=== PATIENT | female | born 1955 | race Caucasian/White ===

== ENCOUNTER 2019-02-15 15:22 | Emergency (ER) | payer MEDICAID ==
[~2019-02-15] VITALS: Ht 170.2 cm; Wt 89.0 kg
[2019-02-15 15:33] VITALS: BP 156/87
--- NOTE | 2019-02-15 15:42 | NUR ---
WAIT IN LOBBY.
--- NOTE | 2019-02-15 16:05 | NUR ---
PT TO ER BED 2
--- NOTE | 2019-02-15 16:16 | NUR ---
63 Y FEMALE BIB C/O FB IN LEFT EYE & PAIN X TODAY. C/O NON-PRODUCTIVE COUGH X 3 DAYS. PAIN 9/10 ACHING. -REDNESS, -SWELLING, NO FB FOUND. VSS AT THIS TIME. AA0X4. BED IS DOWN, LOCKED, BED RAIL X 1, ERMD NOTIFIED. MED HX: DENIES
[2019-02-15] MEDS ORDERED: FLUORESCEIN OPTH STRIP 0.6 MG OP ONE (17:00)
[2019-02-15] MEDS ORDERED: TETRACAINE HCL/PF 0.5% OPTH 4 ML BTL OP ONE (17:00)
[2019-02-15] MEDS ORDERED: TETRACAINE HCL/PF 0.5% OPTH 4 ML BTL ONE (17:17)
[2019-02-15 18:20] VITALS: BP 152/84
--- NOTE | 2019-02-15 18:20 | NUR ---
Patient discharged with v/s stable. Written and verbal after care instructions given and explained. Patient alert, oriented and verbalized understanding of instructions. Ambulatory with steady gait. All questions addressed prior to discharge. ID band removed. Patient advised to follow up with PMD. Rx of IBUPROFEN, NORCO given. Patient educated on indication of medication including possible reaction and side effects. Opportunity to ask questions provided and answered.
== END 2019-02-15 18:20 | disposition home or self-care (01) ==
LOC: MED 15:22
DX: S05.02XA Injury of conjunctiva and corneal abrasion without foreign body, left eye, initial encounter (principal); W22.8XXA Striking against or struck by other objects, initial encounter; Y93.89 Activity, other specified; Y92.89 Other specified places as the place of occurrence of the external cause; Y99.8 Other external cause status
CPT/HCPCS: 99283

== ENCOUNTER 2019-06-16 15:27 | Emergency (ER) | payer MEDICAID ==
[~2019-06-16] VITALS: Ht 147.3 cm; Wt 88.1 kg
[2019-06-16 15:37] VITALS: BP 121/67
[2019-06-16] MEDS ORDERED: ACETAMINOPHEN EXTRA STRENGTH 500 MG TAB PO ONE (15:45)
[2019-06-16] MEDS ORDERED: IBUPROFEN 600 MG TAB PO ONE (15:45)
--- NOTE | 2019-06-16 16:11 | NUR ---
PT C/O UPPER ABDOMINAL PAIN, FEVER, N/V/D, WEAKNESS, DIZZINESS, AND BODY ACHES X3 DAYS. PATIENT STATES PAIN OF 10/10 AT THIS TIME; VSS, BUT TACHYCARDIA NOTICED ON MONITOR; PATIENT POSITIONED FOR COMFORT; HOB ELEVATED; BEDRAILS UP X1; BED DOWN. ER MD MADE AWARE OF PT STATUS.
[2019-06-16] MEDS ORDERED: NACL 0.9% 1,000 ML IV ONE (17:40)
[2019-06-16] MEDS ORDERED: metroNIDAZOLE 500 MG/NS PREMIX 100 ML IV ONE (17:40)
[2019-06-16] MEDS ORDERED: LEVOFLOXACIN 500 MG/D5W PREMIX 100 ML IV ONE (17:40)
--- NOTE | 2019-06-16 17:52 | NUR ---
LAB AT BEDSIDE
[2019-06-16 18:10] LABS: BASOPHILS % (AUTO) 0.4 % (0.0-2.0); HEMATOCRIT 42.5 % (36-48); HEMOGLOBIN 14.6 g/dL (12.0-16.0); LYMPHOCYTES # (AUTO) 1.3 K/uL (2.5-16.5); LYMPHOCYTES % (AUTO) 11.9 % (20.5-51.1); MEAN CORPUSCULAR HEMOGLOBIN 31 pg (27-31); MEAN CORPUSCULAR HGB CONC 34 g/dL (33-37); MEAN CORPUSCULAR VOLUME 90.8 fL (80-94); MONOCYTES # (AUTO) 0.3 K/uL (0.8-1.0); NEUTROPHILS # (AUTO) 9.1 K/uL (1.8-7.7); NEUTROPHILS % (AUTO) 84.7 % (42.2-75.2); PLATELET COUNT (AUTO) 233 K/uL (140-450); RED BLOOD CELL COUNT(AUTO) 4.68 MIL/uL (4.20-5.40); RED CELL DISTRIBUTION WIDTH 13.6 % (11.6-13.7); WHITE BLOOD COUNT (AUTO) 10.7 K/uL (4.8-10.8)
[2019-06-16 18:25] LABS: ALBUMIN 3.5 g/dL (3.4-5.0); ANION GAP 15.5 (8-16); CARBON DIOXIDE 24.9 mmol/L (21-32); CREATININE 1.2 mg/dL (0.6-1.3); POTASSIUM 3.4 mmol/L (3.5-5.1); TOTAL BILIRUBIN 0.4 mg/dL (0.0-1.0)
--- NOTE | 2019-06-16 18:34 | NUR ---
PT IS RESTING IN BED. VSS. FEVER HAS BEEN REDUCED.
--- NOTE | 2019-06-16 19:39 | NUR ---
PT IS RESTING IN BED WITH EYES OPENED. VSS. T IS 98.8F AT THIS TIME.
[2019-06-16 19:59] LABS: APPEARANCE,URINE CLOUDY (CLEAR); BILIRUBIN,URINE NEGATIVE (NEGATIVE); BLOOD, URINE 1+ (NEGATIVE); COLOR,URINE YELLOW (YELLOW); LEUKOCYTE ESTERASE ,URINE 2+ (NEGATIVE); NITRITE, URINE NEGATIVE (NEGATIVE); UGLUCOSE NEGATIVE (NEGATIVE)
--- NOTE | 2019-06-16 20:06 | NUR ---
AMBULATED TO THE RESTROOM
[2019-06-16 20:40] VITALS: BP 113/58
--- NOTE | 2019-06-16 20:40 | NUR ---
Patient discharged with v/s stable. Written and verbal after care instructions given and explained. Patient alert, oriented and verbalized understanding of instructions. Ambulatory with steady gait. All questions addressed prior to discharge. ID band removed. Patient advised to follow up with PMD. Rx of Ciprofloxacin and Zofran given. Patient educated on indication of medication including possible reaction and side effects. Opportunity to ask questions provided and answered.
[2019-06-16 21:19] LABS: RBC,URINE 0-5 /HPF (0-5); URINE AMORPHOUS URATE 3+ /HPF (None Seen)
== END 2019-06-16 20:40 | disposition home or self-care (01) ==
LOC: MED 15:27
DX: A09 Infectious gastroenteritis and colitis, unspecified (principal); K76.0 Fatty (change of) liver, not elsewhere classified; F17.200 Nicotine dependence, unspecified, uncomplicated
CPT/HCPCS: 36415; 80053; 81001; 85025; 87040; 87086; 96365; 96367; 99283; J1956; J3490; J7030

== ENCOUNTER 2019-09-13 07:17 | Emergency (ER) | payer MEDICAID ==
[~2019-09-13] VITALS: Ht 152.4 cm; Wt 86.2 kg
--- NOTE | 2019-09-13 07:23 | NUR ---
PATIENT AMBULATED TO BED 6.
[2019-09-13 07:25] VITALS: BP 149/60
--- NOTE | 2019-09-13 07:25 | NUR ---
64 F PRESENTS TO THE ER C/O RIGHT ARM PAIN. PER PT SHE FELL 3 TO 4 MONTHS AGO ON RIGHT ARM. RIGHT ARM STILL HURTS AND PT UNABLE TO LIFT WITH RIGHT ARM. PAIN LEVEL 10/10. ALLERGIES: NKA MED HX: NONE
--- NOTE | 2019-09-13 07:36 | NUR ---
DR. RAZO EVALUATING PT AT BEDSIDE
[2019-09-13] MEDS ORDERED: KETOROLAC 30 MG/ML VIAL IM ONE (07:40)
--- NOTE | 2019-09-13 07:58 | NUR ---
XRAY AT BEDSIDE
[2019-09-13 08:27] VITALS: BP 149/60
--- NOTE | 2019-09-13 08:27 | NUR ---
Patient discharged with v/s stable. Written and verbal after care instructions given and explained. Pt has sling in place to immobilize right shoulder. Pt instructed to rest extremity and apply ice 15-20 min q 3-4 hours. Patient alert, oriented and verbalized understanding of instructions. Ambulatory with steady gait. All questions addressed prior to discharge. ID band removed. Patient advised to follow up with PMD. Rx of ENTERIC COATED NAPROXEN 375MG was given. Patient educated on indication of medication including possible reaction and side effects. Opportunity to ask questions provided and answered.
== END 2019-09-13 08:27 | disposition home or self-care (01) ==
LOC: MED 07:17
DX: S43.401A Unspecified sprain of right shoulder joint, initial encounter (principal); W19.XXXA Unspecified fall, initial encounter; Y93.89 Activity, other specified; Y92.89 Other specified places as the place of occurrence of the external cause; Y99.8 Other external cause status
CPT/HCPCS: 73030; 96372; 99283; J1885; Q0092

== ENCOUNTER 2019-12-16 23:42 | Emergency (ER) | payer MEDICAID ==
[~2019-12-16] VITALS: Ht 152.4 cm; Wt 86.2 kg
[2019-12-16 23:43] VITALS: BP 119/62
--- NOTE | 2019-12-16 23:50 | NUR ---
PT TAKEN TO BED 4
[2019-12-16] MEDS: IBUPROFEN 600 MG TAB PO ONE (23:51)
--- NOTE | 2019-12-16 23:55 | NUR ---
PT 64 Y/O FEMALE BIB SELF FOR C/O 08/16 GENRALZED BODY ACHES, COUGH, PAULSON, AND FEVER X 3 DAYS. PT AAO X 4, PAKISTANI SPEAKING. PT FEBRILE TEMP: 100.9. SKIN IS WARM AND DRY TO TOUCH. COOLING MEASURES IN PLACE. PT NOTED WITH NON-PRODUCTIVE COUGH. PT RESPIRATIONS ARE EVEN AND UNLABORED. LUNG SOUNDS CLEAR A/P BILAT. PT O2SAT @ 94% ON RA. PT ADMITS TO NAUSEA BUT DENIES V/D. ABD IS SOFT, ROUND, AND NON-TENDER. BS X4. PT DENIES TAKING ANY MEDICATION AT HOME. FAMILY MEMBER AT BEDSIDE. BED LOCKED AND IN LOWEST POSITION. MED HX: NONE ALLERGIES: NKA
--- NOTE | 2019-12-16 23:56 | NUR ---
X-Ray at bedside.
--- NOTE | 2019-12-17 00:19 | NUR ---
LAB CALLED AND REPORTED PT IS POSITIVE FLU A. MADE AWARE. NO NEW ORDERS AT THIS TIME.
--- NOTE | 2019-12-17 01:13 | NUR ---
Paco krause in [facility] - 12/17/19 [place] [address] Smith examining patient.
--- NOTE | 2019-12-17 01:19 | NUR ---
Dr. Smith examining patient.
[2019-12-17] MEDS: KETOROLAC 60 MG/2 ML VIAL IM ONE (01:38)
--- NOTE | 2019-12-17 01:45 | NUR ---
Patient discharged with v/s stable. Written and verbal after care instructions given and explained. Patient alert, oriented and verbalized understanding of instructions. Ambulatory with steady gait. All questions addressed prior to discharge. ID band removed. Patient advised to follow up with PMD. Rx of MOTRIN, PREDNISONE given. Patient educated on indication of medication including possible reaction and side effects. Opportunity to ask questions provided and answered.
[2019-12-17 01:47] VITALS: BP 107/64
== END 2019-12-17 01:45 | disposition home or self-care (01) ==
LOC: MED 23:42
DX: J11.1 Influenza due to unidentified influenza virus with other respiratory manifestations (principal)
CPT/HCPCS: 71045; 81002; 87804; 96372; 99284; J1885; Q0092

== ENCOUNTER 2019-12-19 15:12 | Emergency (ER) | payer MEDICAID ==
[~2019-12-19] VITALS: Ht 152.4 cm; Wt 86.2 kg
--- NOTE | 2019-12-19 15:26 | NUR ---
PT AMBULATED TO BED 03.
[2019-12-19 15:27] VITALS: BP 160/103
--- NOTE | 2019-12-19 15:30 | NUR ---
64/F BIB FAMILY C/O R ARM & R SHOULDER PAIN . 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 PATIENT STATES PAIN OF 9/10 AT THIS TIME. PATIENT POSITIONED FOR COMFORT; HOB ELEVATED; BEDRAILS UP X1; BED DOWN. ER MD MADE AWARE OF PT STATUS.
[2019-12-19] MEDS: KETOROLAC 60 MG/2 ML VIAL IM ONE (16:13)
--- NOTE | 2019-12-19 16:27 | NUR ---
PLACED SLING ON RIGHT ARM OF PT
--- NOTE | 2019-12-19 16:50 | NUR ---
Patient discharged with v/s stable. Written and verbal after care instructions given and explained. Patient alert, oriented and verbalized understanding of instructions. Ambulatory with steady gait. All questions addressed prior to discharge. ID band removed. Patient advised to follow up with PMD. Rx of FLEXARIL& IBUPROFEN given. Patient educated on indication of medication including possible reaction and side effects. Opportunity to ask questions provided and answered.
[2019-12-19 16:51] VITALS: BP 142/73
== END 2019-12-19 16:50 | disposition home or self-care (01) ==
LOC: MED 15:12
DX: S46.911A Strain of unspecified muscle, fascia and tendon at shoulder and upper arm level, right arm, initial encounter (principal); X58.XXXA Exposure to other specified factors, initial encounter; Y93.89 Activity, other specified; Y92.89 Other specified places as the place of occurrence of the external cause; Y99.8 Other external cause status
CPT/HCPCS: 73030; 96372; 99283; J1885

== ENCOUNTER 2020-06-24 20:03 | Emergency (ER) | payer MEDICAID ==
[~2020-06-24] VITALS: Ht 157.5 cm; Wt 90.7 kg
--- NOTE | 2020-06-24 20:07 | NUR ---
PT [facility] BLS. TAKEN TO BED 7
--- NOTE | 2020-06-24 20:13 | NUR ---
PT AMBULATED TO RESTROOM TO GIVE URINE SAMPLE
[2020-06-24] MEDS ORDERED: ALUMINUM HYD/MAG/SIMETHICONE 30 ML UDC PO ONE (20:15)
[2020-06-24] MEDS ORDERED: IBUPROFEN 400 MG TAB PO ONE (20:15)
[2020-06-24 20:23] VITALS: BP 163/77
--- NOTE | 2020-06-24 20:23 | NUR ---
PT BIBA C/O RUQ ABD PAIN RADIATING TO ENTIRE ABD AT 9/10 X1 WEEK, PAIN INCREASES AFTER EATING. PT AAOX4, COOPERATIVE, SPEECH CLEAR, SPEAKING IN FULL COMPLETE SENTENCES, AMBULATORY WITH STEADY GAIT. PMH:DENIES RX:DENIES
--- NOTE | 2020-06-24 20:40 | NUR ---
LAB AT BEDSIDE
--- NOTE | 2020-06-24 20:43 | NUR ---
EKG PERFORMED AT BEDSIDE. SINUS RHYTHM @ 95
[2020-06-24 20:53] LABS: BASOPHILS % (AUTO) 0.5 % (0.0-2.0); EOSINOPHILS # (AUTO) 0.1 K/uL (0-0.4); EOSINOPHILS % (AUTO) 1.6 % (0.0-4.0); HEMATOCRIT 39.3 % (36-48); LYMPHOCYTES # (AUTO) 2.1 K/uL (2.5-16.5); LYMPHOCYTES % (AUTO) 31.1 % (20.5-51.1); MEAN CORPUSCULAR HEMOGLOBIN 31 pg (27-31); MEAN CORPUSCULAR HGB CONC 33 g/dL (33-37); MEAN CORPUSCULAR VOLUME 93.3 fL (80-94); MONOCYTES # (AUTO) 0.5 K/uL (0.8-1.0); MONOCYTES % (AUTO) 7.1 % (1.7-9.3); NEUTROPHILS % (AUTO) 59.7 % (42.2-75.2); PLATELET COUNT (AUTO) 271 K/uL (140-450); RED BLOOD CELL COUNT(AUTO) 4.21 MIL/uL (4.20-5.40); RED CELL DISTRIBUTION WIDTH 13.9 % (11.6-13.7); WHITE BLOOD COUNT (AUTO) 6.8 K/uL (4.8-10.8)
[2020-06-24 20:56] LABS: APPEARANCE,URINE CLEAR (CLEAR); BILIRUBIN,URINE NEGATIVE (NEGATIVE); BLOOD, URINE NEGATIVE (NEGATIVE); COLOR,URINE AMBER (YELLOW); LEUKOCYTE ESTERASE ,URINE NEGATIVE (NEGATIVE); NITRITE, URINE NEGATIVE (NEGATIVE); UGLUCOSE NEGATIVE (NEGATIVE)
[2020-06-24 21:07] LABS: ALBUMIN 3.4 g/dL (3.4-5.0); ANION GAP 16.2 (8-16); CARBON DIOXIDE 25.7 mmol/L (21-32); CREATININE 0.9 mg/dL (0.6-1.3); POTASSIUM 3.9 mmol/L (3.5-5.1); TOTAL BILIRUBIN 0.3 mg/dL (0.0-1.0)
--- NOTE | 2020-06-24 21:22 | NUR ---
Dr. Francois examining patient.
--- NOTE | 2020-06-24 21:29 | NUR ---
PT RESTING IN BED, DENIES PAIN AT THIS TIME, VSS, NO DISTRESS NOTED
--- NOTE | 2020-06-24 21:56 | NUR ---
Patient discharged with v/s stable. Written and verbal after care instructions given and explained. Patient alert, oriented and verbalized understanding of instructions. Ambulatory with steady gait. All questions addressed prior to discharge. ID band removed. Patient advised to follow up with PMD. Rx of FAMOTIDINE given. Patient educated on indication of medication including possible reaction and side effects. Opportunity to ask questions provided and answered.
[2020-06-24 21:58] VITALS: BP 118/56
== END 2020-06-24 21:56 | disposition home or self-care (01) ==
LOC: MED 20:03
DX: R10.11 Right upper quadrant pain (principal)
CPT/HCPCS: 36415; 76705; 80053; 81003; 83690; 85025; 93005; 99285; Q0092; 99284

== ENCOUNTER 2020-09-12 10:23 | Emergency (ER) | payer MEDICAID ==
[~2020-09-12] VITALS: Ht 152.4 cm; Wt 89.5 kg
[2020-09-12 10:25] VITALS: BP 165/79
[2020-09-12 11:15] VITALS: BP 165/79
== END 2020-09-12 11:15 | disposition home or self-care (01) ==
LOC: MED 10:23
DX: R04.0 Epistaxis (principal)
CPT/HCPCS: 99282

== ENCOUNTER 2021-01-09 12:57 | Emergency (ER) | payer MEDICAID ==
[~2021-01-09] VITALS: Ht 157.5 cm; Wt 90.7 kg
[2021-01-09 13:00] VITALS: BP 161/71
[2021-01-09 13:26] LABS: BASOPHILS % (AUTO) 0.6 % (0.0-2.0); EOSINOPHILS # (AUTO) 0.2 K/uL (0-0.4); HEMATOCRIT 42.5 % (36-48); HEMOGLOBIN 14.3 g/dL (12.0-16.0); LYMPHOCYTES # (AUTO) 4.2 K/uL (2.5-16.5); LYMPHOCYTES % (AUTO) 50.4 % (20.5-51.1); MEAN CORPUSCULAR HEMOGLOBIN 31 pg (27-31); MEAN CORPUSCULAR HGB CONC 34 g/dL (33-37); MEAN CORPUSCULAR VOLUME 92.1 fL (80-94); MONOCYTES # (AUTO) 0.6 K/uL (0.8-1.0); MONOCYTES % (AUTO) 7.7 % (1.7-9.3); NEUTROPHILS # (AUTO) 3.3 K/uL (1.8-7.7); NEUTROPHILS % (AUTO) 39.3 % (42.2-75.2); PLATELET COUNT (AUTO) 295 K/uL (140-450); RED BLOOD CELL COUNT(AUTO) 4.61 MIL/uL (4.20-5.40); RED CELL DISTRIBUTION WIDTH 13.7 % (11.6-13.7); WHITE BLOOD COUNT (AUTO) 8.3 K/uL (4.8-10.8)
[2021-01-09] MEDS ORDERED: NACL 0.9% 1,000 ML IV ONE (13:35)
[2021-01-09] MEDS ORDERED: ONDANSETRON 4 MG/2 ML VIAL IVP ONE (13:35)
[2021-01-09] MEDS ORDERED: MORPHINE SULFATE 4 MG/ML SYR IVP ONE (13:35)
[2021-01-09 13:58] LABS: ALBUMIN 3.8 g/dL (3.4-5.0); ANION GAP 13.1 (8-16); CARBON DIOXIDE 27.7 mmol/L (21-32); CREATININE 0.7 mg/dL (0.6-1.3); POTASSIUM 3.8 mmol/L (3.5-5.1); TOTAL BILIRUBIN 0.2 mg/dL (0.0-1.0)
[2021-01-09 14:14] LABS: APPEARANCE,URINE CLEAR (CLEAR); BILIRUBIN,URINE NEGATIVE (NEGATIVE); BLOOD, URINE NEGATIVE (NEGATIVE); COLOR,URINE YELLOW (YELLOW); LEUKOCYTE ESTERASE ,URINE NEGATIVE (NEGATIVE); NITRITE, URINE NEGATIVE (NEGATIVE); PH,URINE 5.5 (5.0-9.0); UGLUCOSE NEGATIVE (NEGATIVE)
[2021-01-09] MEDS ORDERED: DOCU-299 PO (15:04)
[2021-01-09] MEDS ORDERED: ACET-9525 PO (15:04)
[2021-01-09 15:10] VITALS: BP 116/46
== END 2021-01-09 15:10 | disposition home or self-care (01) ==
LOC: MED 12:57
DX: K42.9 Umbilical hernia without obstruction or gangrene (principal); Z79.899 Other long term (current) drug therapy
CPT/HCPCS: 36415; 36569; 74177; 80053; 81003; 83690; 85025; 96361; 96374; 96375; 99285; J2270; J2405; J7030; Q9967

== ENCOUNTER 2021-01-10 01:13 | Inpatient (IN) | payer MEDICAID, SELFPAY ==
[~2021-01-10] VITALS: Ht 157.5 cm; Wt 90.7 kg
[~2021-01-10 01:13] MED LIST: ACET-9525 PO; DOCU-299 PO
[2021-01-10 01:15] VITALS: BP 167/74
[2021-01-10] MEDS ORDERED: DICYCLOMINE 20 MG/2 ML VIAL IM ONE (02:00)
[2021-01-10] MEDS ORDERED: MORPHINE SULFATE 4 MG/ML SYR IVP ONE (03:15)
[2021-01-10] MEDS ORDERED: ONDANSETRON 4 MG/2 ML VIAL IVP ONE (03:15)
[2021-01-10] MEDS ORDERED: metroNIDAZOLE 500 MG/NS PREMIX 100 ML IV ONE (03:15)
[2021-01-10] MEDS ORDERED: PIPERACILLIN/TAZOBACTAM 3.375 GM in DEXTROSE 5% 50 ML IV ONE (03:15)
[2021-01-10] MEDS ORDERED: NACL 0.9% 1,000 ML IV ONE (03:15)
[2021-01-10] MEDS ORDERED: PIPERACILLIN/TAZOBACTAM 3.375 GM VIAL IV ONE (03:38)
[2021-01-10 03:45] LABS: BASOPHILS # (AUTO) 0.1 K/uL (0.00-0.22); BASOPHILS % (AUTO) 0.5 % (0.0-2.0); EOSINOPHILS % (AUTO) 0.4 % (0.0-4.0); HEMATOCRIT 39.2 % (36-48); HEMOGLOBIN 13.1 g/dL (12.0-16.0); LYMPHOCYTES # (AUTO) 1.6 K/uL (2.5-16.5); LYMPHOCYTES % (AUTO) 12.9 % (20.5-51.1); MEAN CORPUSCULAR HEMOGLOBIN 31 pg (27-31); MEAN CORPUSCULAR HGB CONC 34 g/dL (33-37); MEAN CORPUSCULAR VOLUME 92.7 fL (80-94); MONOCYTES # (AUTO) 0.6 K/uL (0.8-1.0); NEUTROPHILS # (AUTO) 9.9 K/uL (1.8-7.7); NEUTROPHILS % (AUTO) 81.2 % (42.2-75.2); PLATELET COUNT (AUTO) 261 K/uL (140-450); RED BLOOD CELL COUNT(AUTO) 4.23 MIL/uL (4.20-5.40); RED CELL DISTRIBUTION WIDTH 13.9 % (11.6-13.7); WHITE BLOOD COUNT (AUTO) 12.1 K/uL (4.8-10.8)
[2021-01-10 03:47] LABS: APPEARANCE,URINE CLEAR (CLEAR); BILIRUBIN,URINE NEGATIVE (NEGATIVE); BLOOD, URINE NEGATIVE (NEGATIVE); LEUKOCYTE ESTERASE ,URINE NEGATIVE (NEGATIVE); NITRITE, URINE NEGATIVE (NEGATIVE); PH,URINE 5.5 (5.0-9.0); UGLUCOSE NEGATIVE (NEGATIVE)
[2021-01-10 03:56] LABS: ALBUMIN 3.5 g/dL (3.4-5.0); ANION GAP 14.8 (8-16); CARBON DIOXIDE 25.3 mmol/L (21-32); CREATININE 0.7 mg/dL (0.6-1.3); POTASSIUM 4.1 mmol/L (3.5-5.1); TOTAL BILIRUBIN 0.3 mg/dL (0.0-1.0)
[2021-01-10 04:12] LABS: COLOR,URINE YELLOW (YELLOW)
[2021-01-10 04:13] LABS: RBC,URINE 0-5 /HPF (0-5); WBC,URINE 0-5 /HPF (0-5)
[2021-01-10 08:30] VITALS: BP_SYST 145; BP_SYST 149; BP_DIAS 73
[2021-01-10] MEDS ORDERED: MORPHINE SULFATE 2 MG/ML SYR IVP PRN (09:45)
[2021-01-10] MEDS ORDERED: MAG SULF 2000 MG/WATER PREMIX 50 ML IV PRN (09:45)
[2021-01-10] MEDS ORDERED: POTASSIUM CHLORIDE 40 MEQ, LIDOCAINE MPF 1% 25 MG in NACL 0.9% 250 ML IV PRN (09:45)
[2021-01-10] MEDS ORDERED: ONDANSETRON 4 MG/2 ML VIAL IM/IVP PRN (09:45)
[2021-01-10] MEDS ORDERED: DOCUSATE SODIUM 100 MG GELCAP PO PRN (09:45)
[2021-01-10] MEDS ORDERED: SODIUM PHOS / POTASSIUM PHOS 1 PKT PDR PO PRN (09:45)
[2021-01-10] MEDS ORDERED: ACETAMINOPHEN 325 MG TAB PO PRN (09:45)
[2021-01-10 10:07] LABS: MAGNESIUM 2.2 mg/dL (1.8-2.4); PHOSPHORUS 3.6 mg/dL (2.5-4.9)
[2021-01-10] MEDS ORDERED: BUPIVACAINE MPF 0.25% 10 ML VIAL INJ ONE ×2 (10:17→10:18)
[2021-01-10] MEDS: PANTOPRAZOLE 40 MG INJ VIAL IVP SCH (10:50)
[2021-01-10] MEDS ORDERED: KETOROLAC 30 MG/ML VIAL ONE (10:51)
[2021-01-10] MEDS ORDERED: ALBUTEROL HFA MDI 90 MCG/ACTUATION 18 GM INH ONE (10:51)
[2021-01-10] MEDS ORDERED: METOCLOPRAMIDE 10 MG/2 ML INJ VIAL ONE (10:51)
[2021-01-10] MEDS ORDERED: DEXAMETHASONE 4 MG/ML VIAL ONE (10:51)
[2021-01-10] MEDS ORDERED: SEVOFLURANE 250 ML BTL INH ONE (10:51)
[2021-01-10] MEDS ORDERED: PROPOFOL 200 MG/20 ML VIAL IV ONE (10:51)
[2021-01-10] MEDS ORDERED: fentaNYL citrate 0.05 MG/ML VIAL ONE (10:51)
[2021-01-10] MEDS ORDERED: ROCURONIUM 50 MG/5 ML VIAL IV ONE (10:51)
[2021-01-10] MEDS ORDERED: LABETALOL 100 MG/20 ML VIAL ONE (10:51)
[2021-01-10] MEDS ORDERED: LIDOCAINE MPF 2% 100 MG/5 ML VIAL INJ ONE (10:51)
[2021-01-10] MEDS ORDERED: NEOSTIGMINE 1:1000 10 MG/10 ML VIAL ONE (10:51)
[2021-01-10] MEDS ORDERED: ONDANSETRON 4 MG/2 ML VIAL ONE (10:51)
[2021-01-10] MEDS ORDERED: SUCCINYLCHOLINE CHLORIDE 200 MG/10 ML VIAL IVP ONE (10:51)
[2021-01-10] MEDS ORDERED: GLYCOPYRROLATE 0.2 MG/ML VIAL ONE (10:51)
[2021-01-10] MEDS ORDERED: diphenhydrAMINE 50 MG/ML VIAL IVP PRN (11:45)
[2021-01-10] MEDS ORDERED: HYDROmorphone 1 MG/ML AMP IVP PRN (11:45)
[2021-01-10] MEDS ORDERED: LACTATED RINGERS 1,000 ML IV SCH (11:45)
[2021-01-10] MEDS ORDERED: ONDANSETRON 4 MG/2 ML VIAL IVP PRN (11:45)
[2021-01-10] MEDS ORDERED: fentaNYL citrate 0.05 MG/ML VIAL IVP PRN (11:45)
[2021-01-10] MEDS ORDERED: MEPERIDINE 25 MG/ML SYR IVP PRN (11:45)
[2021-01-10] MEDS ORDERED: BUPIVACAINE-MPF 0.25% 30 ML VIAL INJ ONE (11:50)
[2021-01-10] MEDS: DEXT 5% /NACL 0.9% 1,000 ML IV SCH ×2 (14:10→20:57)
[2021-01-10 16:00] VITALS: BP 129/71
[2021-01-10 20:00] VITALS: BP 99/52
[2021-01-11] MEDS: HYDROcodone/APAP 5/325 MG 1 TAB TAB PO PRN ×2 (00:59→05:49)
[2021-01-11] MEDS: DEXT 5% /NACL 0.9% 1,000 ML IV SCH (02:56)
[2021-01-11 04:00] VITALS: BP 104/34
[2021-01-11] MEDS: PANTOPRAZOLE 40 MG INJ VIAL IVP SCH (05:48)
[2021-01-11 07:43] LABS: HEMATOCRIT 31.9 % (36-48); HEMOGLOBIN 10.7 g/dL (12.0-16.0); LYMPHOCYTES % (AUTO) 20.3 % (20.5-51.1); MEAN CORPUSCULAR HEMOGLOBIN 32 pg (27-31); MEAN CORPUSCULAR HGB CONC 34 g/dL (33-37); MEAN CORPUSCULAR VOLUME 93.9 fL (80-94); MONOCYTES # (AUTO) 0.6 K/uL (0.8-1.0); MONOCYTES % (AUTO) 6.6 % (1.7-9.3); NEUTROPHILS # (AUTO) 7.1 K/uL (1.8-7.7); NEUTROPHILS % (AUTO) 73.1 % (42.2-75.2); PLATELET COUNT (AUTO) 227 K/uL (140-450); RED CELL DISTRIBUTION WIDTH 14.3 % (11.6-13.7); WHITE BLOOD COUNT (AUTO) 9.7 K/uL (4.8-10.8)
[2021-01-11 07:46] LABS: ANION GAP 10.9 (8-16); CARBON DIOXIDE 28.9 mmol/L (21-32); CREATININE 0.6 mg/dL (0.6-1.3); POTASSIUM 3.8 mmol/L (3.5-5.1)
[2021-01-11 08:00] VITALS: BP 117/43
[2021-01-11 10:06] LABS: HEPATITIS A ANTIBODY IGM Negative (Negative); HEPATITIS B CORE AB TOTAL Negative (Negative); HEPATITIS B SURFACE ANTIBODY Non Reactive (.); HEPATITIS B SURFACE ANTIGEN Negative (Negative)
[2021-01-11] MEDS: NACL 0.9% 1,000 ML IV SCH (11:40)
[2021-01-11 16:00] VITALS: BP 114/40
[2021-01-11] MEDS ORDERED: guaiFENesin DM 200/20 MG-10 ML 10 ML UDC PO PRN (23:50)
[2021-01-12] VITALS: BP 116/60
[2021-01-12] MEDS: NACL 0.9% 1,000 ML IV SCH (02:23)
[2021-01-12 06:06] LABS: BASOPHILS # (AUTO) 0.1 K/uL (0.00-0.22); BASOPHILS % (AUTO) 0.6 % (0.0-2.0); EOSINOPHILS # (AUTO) 0.2 K/uL (0-0.4); EOSINOPHILS % (AUTO) 2.4 % (0.0-4.0); HEMATOCRIT 33.5 % (36-48); HEMOGLOBIN 11.4 g/dL (12.0-16.0); LYMPHOCYTES # (AUTO) 3.9 K/uL (2.5-16.5); LYMPHOCYTES % (AUTO) 49.8 % (20.5-51.1); MEAN CORPUSCULAR HEMOGLOBIN 31 pg (27-31); MEAN CORPUSCULAR HGB CONC 34 g/dL (33-37); MEAN CORPUSCULAR VOLUME 92.5 fL (80-94); MONOCYTES # (AUTO) 0.5 K/uL (0.8-1.0); NEUTROPHILS # (AUTO) 3.2 K/uL (1.8-7.7); NEUTROPHILS % (AUTO) 41.2 % (42.2-75.2); PLATELET COUNT (AUTO) 252 K/uL (140-450); RED BLOOD CELL COUNT(AUTO) 3.62 MIL/uL (4.20-5.40); RED CELL DISTRIBUTION WIDTH 14.1 % (11.6-13.7); WHITE BLOOD COUNT (AUTO) 7.8 K/uL (4.8-10.8)
[2021-01-12 06:28] LABS: ANION GAP 12.1 (8-16); CARBON DIOXIDE 28.5 mmol/L (21-32); CREATININE 0.7 mg/dL (0.6-1.3); POTASSIUM 3.6 mmol/L (3.5-5.1)
[2021-01-12] MEDS: PANTOPRAZOLE 40 MG INJ VIAL IVP SCH (06:54)
[2021-01-12] MEDS: HYDROcodone/APAP 5/325 MG 1 TAB TAB PO PRN (06:56)
[2021-01-12 08:00] VITALS: BP 139/51
[2021-01-12] MEDS ORDERED: ACET-9525 PO (12:18)
[2021-01-12] MEDS ORDERED: DOCU-299 PO (12:18)
[2021-01-12 12:54] VITALS: BP 139/51
== END 2021-01-12 14:05 | disposition home or self-care (01) | DRG 710 ==
LOC: MED 01:13 → MTU 07:11
PROVIDERS: ADMIT Hospitalist; ATTEND Hospitalist
PROC: 0DTJ4ZZ Resection of Appendix, Percutaneous Endoscopic Approach (ICD-10-PCS; principal; 2021-01-10 09:30)
DX: A41.9 Sepsis, unspecified organism (principal); K35.80 Unspecified acute appendicitis; K42.9 Umbilical hernia without obstruction or gangrene; I51.7 Cardiomegaly; E86.0 Dehydration; R73.9 Hyperglycemia, unspecified; Z20.822 Contact with and (suspected) exposure to COVID-19; F43.9 Reaction to severe stress, unspecified; M19.90 Unspecified osteoarthritis, unspecified site; Z98.51 Tubal ligation status; K81.9 Cholecystitis, unspecified
CPT/HCPCS: 36415; 71045; 76705; 80048; 80053; 81001; 83605; 83690; 83735; 84100; 85025; 85610; 85730; 86704; 86706; 86708; 86709; 86803; 86886; 86900; 86901; 87040; 87081; 87340; 93005; 96365; 96367; 96372; 96375; 99285; C9113; J0330; J0500; J1100; J1644; J1885; J2001; J2270; J2405; J2543; J2704; J2710; J2765; J3010; J3490; J7030; J7042; J7060; J7120

== ENCOUNTER 2021-05-21 18:37 | Inpatient (IN) | payer MEDICAID, SELFPAY ==
[~2021-05-21] VITALS: Ht 162.6 cm; Wt 107.0 kg
[2021-05-21] MEDS: DEXT 5% /NACL 0.9% 1,000 ML IV SCH
[~2021-05-21 18:37] MED LIST changes: +ACET-8386 PO; +CIPR500T4 PO; +IBUP-2213 PO
[2021-05-21 18:53] VITALS: BP 156/76
--- NOTE | 2021-05-21 19:00 | NUR ---
PT AMBULATED TO BED 06
--- NOTE | 2021-05-21 19:03 | NUR ---
65 Y/O FEMALE C/O RLQ PAIN X2 DAYS. 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 WITH NAUSEA, DENIES V/D. PT STATES 7/10 PAIN. PMH: UMBILICAL HERNIA NKDA
--- NOTE | 2021-05-21 19:14 | NUR ---
Pt report given to ZANDER RN. Transfer of care at this time.
--- NOTE | 2021-05-21 19:15 | NUR ---
Received report from CHRISTINE Ott for continuity of care.
[2021-05-21] MEDS ORDERED: MORPHINE SULFATE 4 MG/ML SYR IVP ONE (19:20)
[2021-05-21] MEDS ORDERED: HYDROcodone/APAP 5/325 MG 1 TAB TAB PO ONE (19:20)
[2021-05-21] MEDS ORDERED: ONDANSETRON 4 MG/2 ML VIAL IVP ONE (19:20)
[2021-05-21 19:42] LABS: BASOPHILS % (AUTO) 0.5 % (0.0-2.0); EOSINOPHILS # (AUTO) 0.2 K/uL (0-0.4); EOSINOPHILS % (AUTO) 3.1 % (0.0-4.0); HEMATOCRIT 41.2 % (36-48); LYMPHOCYTES # (AUTO) 3.1 K/uL (2.5-16.5); LYMPHOCYTES % (AUTO) 38.9 % (20.5-51.1); MEAN CORPUSCULAR HEMOGLOBIN 31 pg (27-31); MEAN CORPUSCULAR HGB CONC 34 g/dL (33-37); MEAN CORPUSCULAR VOLUME 91.7 fL (80-94); MONOCYTES # (AUTO) 0.7 K/uL (0.8-1.0); MONOCYTES % (AUTO) 8.3 % (1.7-9.3); NEUTROPHILS # (AUTO) 3.9 K/uL (1.8-7.7); NEUTROPHILS % (AUTO) 49.2 % (42.2-75.2); PLATELET COUNT (AUTO) 237 K/uL (140-450); RED BLOOD CELL COUNT(AUTO) 4.49 MIL/uL (4.20-5.40); RED CELL DISTRIBUTION WIDTH 14.2 % (11.6-13.7)
--- NOTE | 2021-05-21 19:46 | NUR ---
PT RETURN FROM CT
[2021-05-21 20:01] LABS: ALBUMIN 3.8 g/dL (3.4-5.0); ANION GAP 9.8 (8-16); CREATININE 0.7 mg/dL (0.6-1.3); POTASSIUM 3.8 mmol/L (3.5-5.1); TOTAL BILIRUBIN 0.3 mg/dL (0.0-1.0)
[2021-05-21 20:07] LABS: APPEARANCE,URINE CLEAR (CLEAR); BILIRUBIN,URINE NEGATIVE (NEGATIVE); BLOOD, URINE NEGATIVE (NEGATIVE); COLOR,URINE YELLOW (YELLOW); LEUKOCYTE ESTERASE ,URINE 1+ (NEGATIVE); NITRITE, URINE NEGATIVE (NEGATIVE); UGLUCOSE NEGATIVE (NEGATIVE)
[2021-05-21 20:26] LABS: RBC,URINE 0-5 /HPF (0-5)
--- NOTE | 2021-05-21 21:14 | NUR ---
PATIENT BACK FROM THE BATHROOM. HOOKED PATIENT BACK UP ON MONITORS FOR SAFETY MEASURES.
--- NOTE | 2021-05-21 21:15 | NUR ---
WALKED UA SAMPLE TO LAB AND GIVEN TO CLS.
--- NOTE | 2021-05-21 21:17 | NUR ---
VALERIA MULLER AT BEDSIDE SPEAKING TO PATIENT ABOUT ADMISSION
--- NOTE | 2021-05-21 21:28 | NUR ---
PT MOVED TO ER BED 10
[2021-05-21] MEDS ORDERED: metroNIDAZOLE 500 MG/NS PREMIX 100 ML IV ONE (21:30)
[2021-05-21] MEDS ORDERED: NACL 0.9% 1,000 ML IV ONE (21:30)
[2021-05-21] MEDS ORDERED: PIPERACILLIN/TAZOBACTAM 3.375 GM in DEXTROSE 5% 50 ML IV ONE (21:30)
[2021-05-21] MEDS ORDERED: PIPERACILLIN/TAZOBACTAM 3.375 GM VIAL IV ONE (21:48)
[2021-05-21] MEDS ORDERED: DEXT 5% / NACL 0.9% 500 ML IV ONE (22:00)
--- NOTE | 2021-05-21 22:57 | NUR ---
Patient will be admitted to care of Maite MUJICA. Admited to Med/Surg. Will go to room 104a. Belongings list completed. Report to CHRISTINE QUEVEDO.
[2021-05-21] MEDS ORDERED: POTASSIUM CHLORIDE 10 MEQ TABER PO PRN (23:00)
[2021-05-21] MEDS ORDERED: ACETAMINOPHEN 325 MG TAB PO PRN (23:00)
[2021-05-21] MEDS ORDERED: ONDANSETRON 4 MG/2 ML VIAL IM/IVP PRN (23:00)
[2021-05-21] MEDS ORDERED: DOCUSATE SODIUM 100 MG GELCAP PO PRN (23:00)
[2021-05-21] MEDS ORDERED: ZOLPIDEM 5 MG TAB PO PRN (23:00)
[2021-05-21] MEDS ORDERED: guaiFENesin DM 200/20 MG-10 ML 10 ML UDC PO PRN (23:00)
[2021-05-21 23:25] LABS: BARBITURATE, URINE NEGATIVE ng/ml (NEG <=200); BENZODIAZEPINE, URINE NEGATIVE ng/mL (NEG <=200); CANNABINOID, URINE NEGATIVE ng/mL (NEG <=50); COCAINE, URINE NEGATIVE ng/mL (NEG <=300); OPIATE, URINE NEGATIVE ng/mL (NEG <=2000); PHENCYCLIDINE SCREEN,URINE NEGATIVE ng/mL (NEG <=25)
[2021-05-21 23:30] VITALS: BP 137/55
[2021-05-21 23:40] LABS: CHOL/HDL RATIO 4.3 (1-4.5); FREE T4 (FREE THYROXINE) 0.78 ng/dL (0.76-1.46); MAGNESIUM 2.5 mg/dL (1.8-2.4); PHOSPHORUS 4.4 mg/dL (2.5-4.9); THYROID STIMULATING HORMONE 2.97 uIU/mL (0.34-3.74)
--- NOTE | 2021-05-21 23:45 | NUR ---
ADMITTED THE PATIENT FROM ER VIA WHEELCHAIR. PT A/A/OX4, ESTONIAN SPEAKING ONLY. CUSTOM FURRIER PROVIDED USING THE [employer] PHONE. UPPER TRIMMER MITCHEL ([id number]) AIDE WITH THE TRANSLATION. PATIENT DENIES ANY ABDOMINAL PAIN, NAUSEA AND VOMITING. INSTRUCTED THE PATIENT NOT TO EAT AND DRINK ANYTHING. ORIENTED THE PATIENT TO THE ROOM SETTING AND USE OF CALL LIGHT SYSTEM. PATIENT VITAL SIGNS STABLE, AFEBRILE, SATING 96% ON RA. PATIENT VERBALIZED UNDERSTANDING WITH THE POC. CALL LIGHT WITHIN REACH. WILL CONTINUE OBSERVATION.
--- NOTE | 2021-05-22 02:00 | NUR ---
PATIENT ASLEEP AT THIS TIME. VISIBLE CHEST RISE AND FALL NOTED. NOT IN ANY DISTRESS. WILL CONTINUE TO OBSERVE.
[2021-05-22] MEDS: MORPHINE SULFATE 2 MG/ML SYR IVP PRN (03:46)
[2021-05-22 04:00] VITALS: BP 153/86
--- NOTE | 2021-05-22 04:00 | NUR ---
VITAL SIGNS STABLE,AFEBRILE, SATING 97% ON RA. NO COMPLAIN OF PAIN AT THIS TIME. NOT IN ANY DISTRESS. CALL LIGHT WITHIN REACH. WILL CONTINUE OBSERVATION.
[2021-05-22] MEDS ORDERED: PIPERACILLIN/TAZOBACTAM 2.25 GM VIAL IV ONE (04:22)
[2021-05-22] MEDS: PIPERACILLIN/TAZOBACTAM 2.25 GM in DEXTROSE 5% 50 ML IV SCH ×3 (04:52→20:50)
--- NOTE | 2021-05-22 06:00 | NUR ---
NO ACUTE EVENT THROUGHOUT THE NIGHT. PATIENT STABLE. PATIENT NOT IN ANY DISTRESS. NO COMPLAIN AT THIS TIME. ALL NEEDS ATTENDED. CALL LIGHT WITHIN REACH. WILL ENDORSE THE PATIENT TO THE ONCOMING RN FOR CONTINUITY OF CARE.
[2021-05-22 06:32] LABS: BASOPHILS % (AUTO) 0.6 % (0.0-2.0); EOSINOPHILS # (AUTO) 0.2 K/uL (0-0.4); EOSINOPHILS % (AUTO) 3.7 % (0.0-4.0); HEMATOCRIT 41.4 % (36-48); LYMPHOCYTES # (AUTO) 2.2 K/uL (2.5-16.5); LYMPHOCYTES % (AUTO) 34.3 % (20.5-51.1); MEAN CORPUSCULAR HEMOGLOBIN 31 pg (27-31); MEAN CORPUSCULAR HGB CONC 34 g/dL (33-37); MONOCYTES # (AUTO) 0.5 K/uL (0.8-1.0); MONOCYTES % (AUTO) 8.2 % (1.7-9.3); NEUTROPHILS # (AUTO) 3.5 K/uL (1.8-7.7); NEUTROPHILS % (AUTO) 53.2 % (42.2-75.2); PLATELET COUNT (AUTO) 226 K/uL (140-450); RED BLOOD CELL COUNT(AUTO) 4.45 MIL/uL (4.20-5.40); RED CELL DISTRIBUTION WIDTH 13.8 % (11.6-13.7); WHITE BLOOD COUNT (AUTO) 6.5 K/uL (4.8-10.8)
[2021-05-22 06:40] LABS: ANION GAP 10.3 (8-16); CARBON DIOXIDE 28.2 mmol/L (21-32); CREATININE 0.6 mg/dL (0.6-1.3); POTASSIUM 3.5 mmol/L (3.5-5.1)
[2021-05-22 07:02] LABS: PROTHROMBIN TIME 10.1 secs (10.8-13.4)
--- NOTE | 2021-05-22 07:10 | NUR ---
RECEIVED REPORT FROM FISHERIES SPECIALIST RN FOR CONTINUITY OF CARE. PATIENT SLEEPING IN BED. BREATHING IS EVEN AND UNLABORED NO DISTRESS NOTED. ALL SAFETY MEASURES IN PLACE. WILL CONTINUE TO MONITOR.
--- NOTE | 2021-05-22 07:15 | NUR ---
ENDORSED THE PATIENT TO CHRISTINE VALDEZ FOR CONTINUITY OF CARE. PATIENT STABLE. SIGNING OFF.
--- NOTE | 2021-05-22 07:44 | NUR ---
PATIENT HAS BEEN SCREENED AND CATEGORIZED LOW NUTRITION RISK. PATIENT WILL BE SEEN WITHIN 7 DAYS OF ADMISSION. 05/28/[address]
[2021-05-22] MEDS: DEXT 5% /NACL 0.9% 1,000 ML IV SCH ×3 (09:36→20:53)
--- NOTE | 2021-05-22 09:36 | NUR ---
PATIENT IN BED ON PHONE. ROUTINE MEDICATION GIVEN BY INSTRUCTOR BALLROOM DANCING AND INSTRUCTOR. ALL SAFETY MEASURES IN PLACE. WILL CONTINUE TO MONITOR.
[2021-05-22] MEDS: PANTOPRAZOLE 40 MG TABEC PO SCH (09:40)
[2021-05-22] MEDS: lisinopriL 10 MG TAB PO SCH (09:43)
--- NOTE | 2021-05-22 11:15 | NUR ---
PATIENT IN BED SLEEPING. BREATHING EVEN AND UNLABORED. ALL SAFETY MEASURES IN PLACE. WILL CONTINUE TO MONITOR.
[2021-05-22 12:00] VITALS: BP 134/85
[2021-05-22] MEDS: HYDROcodone/APAP 7.5/325 MG 1 TAB PO PRN (13:39)
--- NOTE | 2021-05-22 13:56 | NUR ---
PATIENT AWAKE SITTING UP IN BED. NO ACUTE DISTRESS NOTED. ALL SAFETY MEASURES IN PLACE. WILL CONTINUE TO MONITOR.
--- NOTE | 2021-05-22 14:09 | NUR ---
PATIENT LAYING IN BED TALKING ON PHONE. NO ACUTE DISTRESS NOTED. ALL SAFETY MEASURES IN PLACE. WILL CONTINUE TO MONITOR.
--- NOTE | 2021-05-22 15:26 | NUR ---
PATIENT LAYING IN BED. BREATHING IS EVEN AN UNLABORED. FAMILY AT BEDSIDE. ALL SAFETY MEASURES IN PLACE. WILL CONTINUE TO MONITOR
--- NOTE | 2021-05-22 17:53 | NUR ---
PATIENT IN BED TALKING ON PHONE. NO ACUTE DISTRESS NOTED. ALL SAFETY MEASURES IN PLACE. WILL CONTINUE TO MONITOR.
--- NOTE | 2021-05-22 19:10 | NUR ---
ENDORSED TO PLATE PAINTER APPRENTICE NURSE FOR CONTINUITY OF CARE. PATIENT STABLE. ALL SAFETY MEASURES IN PLACE.
[2021-05-22 20:00] VITALS: BP 118/63
--- NOTE | 2021-05-22 20:00 | NUR ---
RECEIVED BEDSIDE REPORT EARLIER REGARDING THE PT FOR CONTINUITY OF CARE. PT A/A/OX4, ANGUILLAN SPEAKING ONLY. TAVERN OPERATOR PROVIDED. PT NOT IN ANY DISTRESS. NO COMPLAIN OF ABDOMINAL PAIN, N & V. IVF INFUSING ORDERED. PT NPO EXCEPT FOR MEDS. PT GOING FOR SURGERY TONIGHT PER DAY RN REPORT. PT AWARE AND NOTIFIED. CALL LIGHT WITHIN REACH. WILL CONTINUE POC.
--- NOTE | 2021-05-22 22:00 | NUR ---
ADMINISTERED ALL THE SCHEDULED MEDICATIONS ORDERED. PT TOLERATED IT WELL NO ADVERSE DRUG REACTION NOTED. NO COMPLAIN FROM THE PATIENT. WILL CONTINUE POC.
--- NOTE | 2021-05-23 | NUR ---
PATIENT STILL AWAKE AND ALERT ,LAYING IN BED WATCHING TV. NOT IN ANY DISTRESS AND NO COMPLAIN AT THIS TIME.
--- NOTE | 2021-05-23 | NUR ---
PATIENT STILL AWAKE AND INSTRUCTED EARLIER NOT TO EAT AND DRINK ANYTHING AFTER MIDNIGHT. PATIENT DAUGHTER IN LAW WAS AT THE BEDSIDE EARLIER ALSO AIDE WITH THE TRANSLATION AND REMINDED THE PT NOT TO EAT AND DRINK AFTER MN FOR THE SURGERY THIS AM. PT VERBALIZED UNDERSTANDING.
--- NOTE | 2021-05-23 02:00 | NUR ---
PATIENT ASLEEP AT THIS TIME. VISIBLE CHEST RISE AND FALL NOTED. SITTER AT THE BEDSIDE. WILL CONTINUE OBSERVATION.
[2021-05-23 04:00] VITALS: BP 103/54
--- NOTE | 2021-05-23 04:00 | NUR ---
PATIENT VITALS SIGNS STABLE, AFEBRILE, SATING 97% ON RA. NOT IN ANY DISTRESS NO COMPLAIN AT THIS TIME. SAFETY MEASURES IN PLACED.
[2021-05-23] MEDS: PIPERACILLIN/TAZOBACTAM 2.25 GM in DEXTROSE 5% 50 ML IV SCH ×3 (05:00→20:47)
[2021-05-23] MEDS: DEXT 5% /NACL 0.9% 1,000 ML IV SCH ×2 (05:02→17:30)
[2021-05-23 06:07] LABS: BASOPHILS % (AUTO) 0.5 % (0.0-2.0); EOSINOPHILS # (AUTO) 0.3 K/uL (0-0.4); EOSINOPHILS % (AUTO) 4.2 % (0.0-4.0); HEMOGLOBIN 13.6 g/dL (12.0-16.0); LYMPHOCYTES # (AUTO) 2.3 K/uL (2.5-16.5); LYMPHOCYTES % (AUTO) 35.6 % (20.5-51.1); MEAN CORPUSCULAR HEMOGLOBIN 31 pg (27-31); MEAN CORPUSCULAR HGB CONC 33 g/dL (33-37); MEAN CORPUSCULAR VOLUME 93.5 fL (80-94); MONOCYTES # (AUTO) 0.5 K/uL (0.8-1.0); MONOCYTES % (AUTO) 7.4 % (1.7-9.3); NEUTROPHILS # (AUTO) 3.4 K/uL (1.8-7.7); NEUTROPHILS % (AUTO) 52.3 % (42.2-75.2); PLATELET COUNT (AUTO) 217 K/uL (140-450); RED BLOOD CELL COUNT(AUTO) 4.39 MIL/uL (4.20-5.40); RED CELL DISTRIBUTION WIDTH 13.9 % (11.6-13.7); WHITE BLOOD COUNT (AUTO) 6.5 K/uL (4.8-10.8)
[2021-05-23 06:33] LABS: ANION GAP 10.6 (8-16); CARBON DIOXIDE 27.9 mmol/L (21-32); CREATININE 0.8 mg/dL (0.6-1.3); POTASSIUM 3.5 mmol/L (3.5-5.1)
--- NOTE | 2021-05-23 07:25 | NUR ---
ENDORSED THE PATIENT TO CHRISTINE CALLAWAY FOR CONTINUITY OF CARE. PT STABLE. SIGNING OFF.
--- NOTE | 2021-05-23 07:27 | NUR ---
RECEIVED BEDSIDE REPORT FROM CUFF SETTER LOCKSTITCH NURSE FOR CONTINUITY OF CARE. PT A/A/OX4, SWEDISH SPEAKING ONLY. FIRE CONTROL TECHNICIAN B PROVIDED. RESPIRATIONS EVEN AND UNLABORED. PT NOT IN ANY DISTRESS. NO COMPLAIN OF ABDOMINAL PAIN, N & V AT THE MOMENT. SKIN IS WARM AND DRY. IV SITE ON R WRIST 22 G INTACT AND PATENT. IVF INFUSING ORDERED. PT NPO EXCEPT FOR MEDS. AWAITING FOR SURGERY TODAY WITH DR. REYNOLDS. PT AWARE AND NOTIFIED. PLAN OF CARE DISCUSSED. SAFETY PRECAUTIONS IN PLACE. CALL LIGHT WITHIN REACH. WILL CONTINUE TO MONITOR.
[2021-05-23 08:00] VITALS: BP 130/80
[2021-05-23] MEDS: lisinopriL 10 MG TAB PO SCH (08:58)
[2021-05-23] MEDS: PANTOPRAZOLE 40 MG TABEC PO SCH (08:58)
--- NOTE | 2021-05-23 09:45 | NUR ---
ALL SCHEDULED MEDS GIVEN. PT IS STABLE. NO DISTRESS NOTED AND DENIES PAIN AT THE MOMENT. WILL CONTINUE TO MONITOR.
[2021-05-23] MEDS ORDERED: BUPIVACAINE-MPF/EPI 0.25% 30 ML VIAL INJ ONE (11:43)
[2021-05-23] MEDS ORDERED: LIDOCAINE 1% 500 MG/50 ML VIAL ONE (11:43)
--- NOTE | 2021-05-23 12:10 | NUR ---
MD AT PATIENT'S BEDSIDE DISCUSSING RISK AND BENEFITS FOR THE LAPARASCOPIC APPENDECTOMY PROCEDURE. PATIENT VERBALIZED UNDERSTANDING AND SIGNED THE CONSENT FORM. ALL REQUIRED SIGNATURES ARE ON THE CONSENT FORMS. AWAITING FOR PATIENT TO BE TRANSFERRED TO OR FOR THE PROCEDURE.
--- NOTE | 2021-05-23 12:24 | NUR ---
ALL SCHEDULED MEDS GIVEN. PT IS STABLE. NO DISTRESS NOTED. WILL CONTINUE TO MONITOR.
--- NOTE | 2021-05-23 13:30 | NUR ---
PATIENT REQUESTED TO STORE HER MONEY WITH SECURITY BEFORE GOING TO SURGERY. SECRETARY OF STATE RECORDED AMOUNT AND PROVIDED ENVELOPE FOR THE MONEY. SAFELY SENT AND STORED WITH ADMITTING OFFICE.
--- NOTE | 2021-05-23 13:45 | NUR ---
OR NURSES AT BEDSIDE PREPARING TO TRANSFER PATIENT TO OR FOR LAPARASCOPIC APPENDECTOMY PROCEDURE.
[2021-05-23] MEDS ORDERED: SUCCINYLCHOLINE CHLORIDE 200 MG/10 ML VIAL IVP ONE (14:06)
[2021-05-23] MEDS ORDERED: fentaNYL citrate 0.05 MG/ML VIAL ONE (14:06)
[2021-05-23] MEDS ORDERED: PROPOFOL 200 MG/20 ML VIAL IV ONE (14:06)
[2021-05-23] MEDS ORDERED: MIDAZOLAM 2 MG/2 ML VIAL ONE (14:06)
[2021-05-23] MEDS ORDERED: SEVOFLURANE 250 ML BTL INH ONE (14:45)
[2021-05-23] MEDS ORDERED: ONDANSETRON 4 MG/2 ML VIAL ONE (15:10)
[2021-05-23] MEDS ORDERED: DEXAMETHASONE 4 MG/ML VIAL ONE (15:10)
[2021-05-23] MEDS ORDERED: ROCURONIUM 50 MG/5 ML VIAL IV ONE ×2 (15:12)
[2021-05-23] MEDS ORDERED: diphenhydrAMINE 50 MG/ML VIAL IVP PRN (15:40)
[2021-05-23] MEDS ORDERED: HYDROmorphone 1 MG/ML AMP IVP PRN (15:40)
[2021-05-23] MEDS ORDERED: ONDANSETRON 4 MG/2 ML VIAL IVP PRN (15:40)
[2021-05-23] MEDS: LACTATED RINGERS 1,000 ML IV SCH (15:40)
[2021-05-23] MEDS ORDERED: SUGAMMADEX SODIUM 200 MG/2 ML VIAL IV ONE (15:46)
[2021-05-23] MEDS: MEPERIDINE 25 MG/ML SYR IVP PRN ×2 (16:20→16:30)
[2021-05-23 16:50] VITALS: BP 108/53
--- NOTE | 2021-05-23 16:54 | NUR ---
PATIENT TRANSFERRED BACK TO ROOM. PT TOLERATED PROCEDURE WELL. NOTED 3 INCISIONS ON ABD AND DERMABOND WAS USED TO CLOSE INCISIONS. NO DRAINAGE NOTED. PT IS STABLE. WILL ASSESS POST OP V/S.
[2021-05-23] MEDS: MORPHINE SULFATE 2 MG/ML SYR IVP PRN (17:33)
--- NOTE | 2021-05-23 17:37 | NUR ---
PATIENT COMPLAINED OF ABD PAIN FROM SURGICAL INCISIONS /10. ADMINISTERED PRN PAIN MEDICATIONS PER MD ORDERED.
[2021-05-23] MEDS: HYDROcodone/APAP 7.5/325 MG 1 TAB PO PRN (18:33)
--- NOTE | 2021-05-23 18:33 | NUR ---
PATIENT STILL COMPLAINED OF ABD PAIN 04/16. ADMINISTERED PRN PAIN MEDICATIONS PER MD ORDERED
--- NOTE | 2021-05-23 19:30 | NUR ---
ENDORSED TO CAP CUTTER NURSE FOR CONTINUITY OF CARE. PT IS STABLE.
--- NOTE | 2021-05-23 19:31 | NUR ---
RECEIVED PATIENT FROM AM NURSE FOR CONTINUITY OF CARE. PATIENT IS RESTING IN BED, AROUSABLE TO VOICE. A/A/O X4, SWAZI SPEAKING, FAMILY MEMBER AT BEDSIDE. RESPIRATORY EVEN AND UNLABORED, ON ROOM AIR, NO SIGN OF DISTRESS NOTED. SKIN WARM, DRY, NON DIAPHORETIC. 3 INCISIONS NOTED ON ABDOMEN WITH DERMAL DORSEY, NO DISCHARGE, NO BLEEDING NOTED. ABDOMEN SOFT, TENDER TO PALPATE, BOWEL SOUND ACTIVE TO 4 QUADRANTS. IV ON RIGHT WRIST 22G, INTACT AND PATENT, IS INFUSING FLUID ORDER. COMPLAINS PAIN 5/10 ON HER ABDOMEN, PAIN TOLERABLE. DENIES ANY N/V. ABLE TO MAKE NEED KNOWN. PLAN OF CARE DISCUSSED, PATIENT AND FAMILY MEMBER VERBALIZED UNDERSTANDING. CALL LIGHT WITHIN REACH. WILL CONTINUE TO MONITOR.
[2021-05-23 20:00] VITALS: BP 127/75
--- NOTE | 2021-05-23 20:47 | NUR ---
SCHEDULE MEDICATION GIVEN WITH EDUCATION. PATIENT VERBALIZED UNDERSTANDING. CALL LIGHT WITHIN REACH. WILL CONTINUE TO MONITOR.
--- NOTE | 2021-05-23 22:30 | NUR ---
ASSIST PATIENT AMBULATE TO BATHROOM. PATIENT IS TOLERATED WELL. NO SIGN OF DISTRESS NOTED.
--- NOTE | 2021-05-24 | NUR ---
ROUND CHECK. PATIENT IS SLEEPING, CHEST RISE AND FALL, NO SIGN OF DISTRESS NOTED. CALL LIGHT WITHIN REACH. WILL CONTINUE TO MONITOR.
--- NOTE | 2021-05-24 02:14 | NUR ---
ASSIST PATIENT AMBULATE TO BATHROOM. PATIENT AMBULATES WITH STEADY GAIT INDEPENDENTLY. PATIENT TOLERATED WELL. NO SIGN OF DISTRESS NOTED. CALL LIGHT WITHIN REACH. WILL CONTINUE TO MONITOR.
[2021-05-24] MEDS: DEXT 5% /NACL 0.9% 1,000 ML IV SCH ×2 (02:15→09:27)
[2021-05-24 04:00] VITALS: BP 105/57
[2021-05-24] MEDS: PIPERACILLIN/TAZOBACTAM 2.25 GM in DEXTROSE 5% 50 ML IV SCH ×2 (04:08→13:21)
--- NOTE | 2021-05-24 04:08 | NUR ---
SCHEDULE MEDICATION GIVEN WITH EDUCATION. PATIENT VERBALIZED UNDERSTANDING. NO SIGN OF DISTRESS NOTED. CALL LIGHT WITHIN REACH. WILL CONTINUE TO MONITOR.
[2021-05-24] MEDS: MORPHINE SULFATE 2 MG/ML SYR IVP PRN (04:23)
--- NOTE | 2021-05-24 06:00 | NUR ---
PATIENT IS SLEEPING, CHEST RISE AND FALL, NO SIGN OF DISTRESS NOTED. CALL LIGHT WITHIN REACH. WILL CONTINUE TO MONITOR.
[2021-05-24 06:33] LABS: BASOPHILS % (AUTO) 0.2 % (0.0-2.0); HEMATOCRIT 38.9 % (36-48); LYMPHOCYTES # (AUTO) 1.4 K/uL (2.5-16.5); LYMPHOCYTES % (AUTO) 19.9 % (20.5-51.1); MEAN CORPUSCULAR HEMOGLOBIN 31 pg (27-31); MEAN CORPUSCULAR HGB CONC 34 g/dL (33-37); MEAN CORPUSCULAR VOLUME 93.7 fL (80-94); MONOCYTES # (AUTO) 0.3 K/uL (0.8-1.0); MONOCYTES % (AUTO) 4.7 % (1.7-9.3); NEUTROPHILS # (AUTO) 5.2 K/uL (1.8-7.7); NEUTROPHILS % (AUTO) 75.2 % (42.2-75.2); PLATELET COUNT (AUTO) 244 K/uL (140-450); RED BLOOD CELL COUNT(AUTO) 4.15 MIL/uL (4.20-5.40); RED CELL DISTRIBUTION WIDTH 14.1 % (11.6-13.7); WHITE BLOOD COUNT (AUTO) 6.9 K/uL (4.8-10.8)
[2021-05-24 06:48] LABS: CARBON DIOXIDE 27.7 mmol/L (21-32); CREATININE 0.7 mg/dL (0.6-1.3); POTASSIUM 3.7 mmol/L (3.5-5.1)
[2021-05-24 06:53] LABS: PHOSPHORUS 3.5 mg/dL (2.5-4.9)
--- NOTE | 2021-05-24 07:22 | NUR ---
ENDORSED PATIENT TO AM NURSE FOR CONTINUITY OF CARE. PATIENT IS STABLE.
--- NOTE | 2021-05-24 07:30 | NUR ---
RECEIVED BEDSIDE REPORT FROM OIL REFINER NURSE FOR CONTINUITY OF CARE. PT A/A/OX4, THAI SPEAKING ONLY. SENIOR INVESTMENT MANAGER PROVIDED. RESPIRATIONS EVEN AND UNLABORED. PT NOT IN ANY DISTRESS. SKIN IS WARM AND DRY. S/P LAP APPENDECTOMY 05/23. NOTED 3 SURGICAL INCISION SITES, CLOSED WITH DERMABOND. NO DRAINAGE NOTED. C/D/I. NO COMPLAIN OF ABDOMINAL PAIN, N & V AT THE MOMENT. IV SITE ON R WRIST 22 G INTACT AND PATENT. IVF INFUSING ORDERED. PLAN OF CARE DISCUSSED. SAFETY PRECAUTIONS IN PLACE. CALL LIGHT WITHIN REACH. WILL CONTINUE TO MONITOR.
[2021-05-24 08:00] VITALS: BP 130/62
[2021-05-24] MEDS: LACTATED RINGERS 1,000 ML IV SCH ×2 (08:20)
[2021-05-24] MEDS: HYDROcodone/APAP 7.5/325 MG 1 TAB PO PRN (09:27)
[2021-05-24] MEDS: lisinopriL 10 MG TAB PO SCH (09:27)
[2021-05-24] MEDS: PANTOPRAZOLE 40 MG TABEC PO SCH (09:27)
--- NOTE | 2021-05-24 09:27 | NUR ---
PATIENT COMPLAINED OF ABD PAIN /. ADMINISTERED PRN PAIN MEDICATIONS PER MD ORDERED.
--- NOTE | 2021-05-24 10:04 | NUR ---
SCHEDULED MEDS GIVEN. PT IS STABLE. DENIES PAIN AND NO S/S OF DISTRESS NOTED. WILL CONTINUE TO MONITOR.
[2021-05-24] MEDS ORDERED: LISI10TA30 PO (11:07)
[2021-05-24] MEDS ORDERED: PANT40EC56 PO (11:07)
--- NOTE | 2021-05-24 11:30 | NUR ---
DISCHARGE ORDER RECEIVED. WILL ENDORSE TO PATIENT.
--- NOTE | 2021-05-24 12:49 | NUR ---
ENDORSED DISCHARGE INSTRUCTIONS TO PATIENT. PATIENT VERBALIZED UNDERSTANDING AND SIGNED DISCHARGE FORMS.
--- NOTE | 2021-05-24 13:38 | NUR ---
PATIENT DISCHARGED OFF THE UNIT. PICKED UP BY FAMILY AT THE FRONT LOBBY. IV AND ID BAND REMOVED. PT WAS STABLE PRIOR TO DISCHARGE.
== END 2021-05-24 13:40 | disposition home or self-care (01) | DRG 234 ==
LOC: MED 18:37 → MTU 21:58
PROVIDERS: ADMIT Family Medicine; ATTEND Family Medicine
PROC: 0DTJ4ZZ Resection of Appendix, Percutaneous Endoscopic Approach (ICD-10-PCS; principal; 2021-05-23 12:00)
DX: K36 Other appendicitis (principal); G93.41 Metabolic encephalopathy; E66.01 Morbid (severe) obesity due to excess calories; E87.8 Other disorders of electrolyte and fluid balance, not elsewhere classified; E83.41 Hypermagnesemia; B02.9 Zoster without complications; N39.0 Urinary tract infection, site not specified; K42.9 Umbilical hernia without obstruction or gangrene; Z20.822 Contact with and (suspected) exposure to COVID-19; L40.9 Psoriasis, unspecified; Z79.899 Other long term (current) drug therapy; Z68.41 Body mass index [BMI] 40.0-44.9, adult
CPT/HCPCS: 36415; 71045; 80048; 80053; 80305; 81001; 82150; 83036; 83690; 83735; 83880; 84100; 84436; 84439; 84443; 84479; 84484; 85025; 85610; 85730; 87081; 87086; 96365; 96367; 99285; J0330; J1100; J2001; J2175; J2250; J2270; J2405; J2543; J2704; J3010; J3490; J7030; J7060

== ENCOUNTER 2021-05-26 14:51 | Emergency (ER) | payer MEDICAID, SELFPAY ==
[~2021-05-26] VITALS: Ht 152.4 cm; Wt 88.5 kg
[~2021-05-26 14:51] MED LIST changes: -ACET-9525 PO; -CIPR500T4 PO; +LISI10TA30 PO; +PANT40EC56 PO
[2021-05-26 15:07] VITALS: BP 142/69
[2021-05-26] MEDS ORDERED: NACL 0.9% 1,000 ML IV ONE (15:25)
--- NOTE | 2021-05-26 15:30 | NUR ---
65 YEAR OLD FEMALE BIBA FOR ABDOMINAL DISTENTION AND DEHISCENCE X TODAY. PT STATES SHE HAS NAUSEA. PT DENIES VOMITTING OR DIARRHEA. PT STATES SHE HAD APPENDECTOMY ON TUESDAY. BOWEL SOUNDS NORMOACTIVE, DISTENDED. PT AOX4, BREATHING EVEN AND UNLABORED, SKIN WARM AND DRY. BED IN LOWEST POSITION, LOCKED, BED RAIL UPX1. PMH - DM2 ALLERGIES - NKA
[2021-05-26] MEDS ORDERED: cefTRIAXone 1,000 MG VIAL ONE (15:55)
[2021-05-26 15:57] LABS: BASOPHILS # (AUTO) 0.1 K/uL (0.00-0.22); BASOPHILS % (AUTO) 0.9 % (0.0-2.0); EOSINOPHILS # (AUTO) 0.1 K/uL (0-0.4); EOSINOPHILS % (AUTO) 1.5 % (0.0-4.0); HEMATOCRIT 40.1 % (36-48); HEMOGLOBIN 13.6 g/dL (12.0-16.0); LYMPHOCYTES # (AUTO) 2.1 K/uL (2.5-16.5); LYMPHOCYTES % (AUTO) 25.9 % (20.5-51.1); MEAN CORPUSCULAR HEMOGLOBIN 31 pg (27-31); MEAN CORPUSCULAR HGB CONC 34 g/dL (33-37); MEAN CORPUSCULAR VOLUME 91.2 fL (80-94); MONOCYTES # (AUTO) 0.4 K/uL (0.8-1.0); MONOCYTES % (AUTO) 5.3 % (1.7-9.3); NEUTROPHILS # (AUTO) 5.4 K/uL (1.8-7.7); NEUTROPHILS % (AUTO) 66.4 % (42.2-75.2); PLATELET COUNT (AUTO) 262 K/uL (140-450); RED CELL DISTRIBUTION WIDTH 13.5 % (11.6-13.7); WHITE BLOOD COUNT (AUTO) 8.1 K/uL (4.8-10.8)
[2021-05-26 16:13] LABS: ALBUMIN 3.9 g/dL (3.4-5.0); ANION GAP 10.8 (8-16); CARBON DIOXIDE 28.5 mmol/L (21-32); CREATININE 0.7 mg/dL (0.6-1.3); POTASSIUM 3.3 mmol/L (3.5-5.1); TOTAL BILIRUBIN 0.4 mg/dL (0.0-1.0)
--- NOTE | 2021-05-26 17:04 | NUR ---
PT ALERT AND AWAKE, BREATHING EVEN AND UNLABORED. NO DISTRESS NOTED. ALL NEEDS MET AT THIS TIME WILL CONTINUE TO MONITOR
[2021-05-26] MEDS ORDERED: ACET-8386 PO (19:09)
[2021-05-26] MEDS ORDERED: AMOX-1000 PO (19:09)
[2021-05-26] MEDS ORDERED: ACET-9527 PO (19:10)
--- NOTE | 2021-05-26 19:12 | NUR ---
REPORT GIVEN TO ALANNA KING, TRANSFER OF CARE AT THIS TIME
--- NOTE | 2021-05-26 19:12 | NUR ---
REPORT RECEIVED FROM CHRISTINE DAVID FOR CONTINUATION OF CARE AT THIS TIME.
[2021-05-26 19:51] VITALS: BP 142/69
--- NOTE | 2021-05-26 19:51 | NUR ---
Patient discharged with v/s stable. Written and verbal after care instructions given and explained. Patient alert, oriented and verbalized understanding of instructions. Ambulatory with steady gait. All questions addressed prior to discharge. ID band removed. Patient advised to follow up with PMD. Rx of NORCO, AUGMENTIN given. Patient educated on indication of medication including possible reaction and side effects. Opportunity to ask questions provided and answered.
== END 2021-05-26 19:51 | disposition home or self-care (01) ==
LOC: MED 14:51
DX: R14.0 Abdominal distension (gaseous) (principal); R11.0 Nausea; Z90.49 Acquired absence of other specified parts of digestive tract; Z79.899 Other long term (current) drug therapy
CPT/HCPCS: 36415; 74176; 80053; 83605; 85025; 87040; 96365; 99284; J0696; J7030

== ENCOUNTER 2021-10-12 14:33 | Emergency (ER) | payer MEDICAID ==
[~2021-10-12] VITALS: Ht 144.8 cm; Wt 89.8 kg
[~2021-10-12 14:33] MED LIST changes: +ACET-9527 PO; +AMOX-1000 PO
[2021-10-12 14:47] VITALS: BP 161/79
--- NOTE | 2021-10-12 14:51 | NUR ---
PT SENT TO ER LOBBY TO WAIT FOR AVAILABLE BED.
--- NOTE | 2021-10-12 15:11 | NUR ---
PT TAKEN TO BED 11 AMBULATED WITH ASSISTANCE OF CANE.
[2021-10-12] MEDS ORDERED: KETOROLAC 30 MG/ML VIAL IM ONE (15:40)
--- NOTE | 2021-10-12 16:15 | NUR ---
66/F BIB SELF WITH C/O BILATERAL KNEE PAIN. PATIENT STATES SHE SUFFERS FROM ARTHRITIS AND HAS BEEN HAVING FLARE UPS IN BILATERAL KNEES THAT HAS WORSENED OVER THE LAST 4 DAYS. PATIENT DENIES ANY RECENT INJURY OR TRAUMA, DENIES TAKING ANYTHING FOR PAIN AT HOME PRIOR TO ARRIVAL. PATIENT DENIES NUMBNESS OR TINGLING.
[2021-10-12] MEDS ORDERED: TRAM50TA1 PO (16:20)
[2021-10-12 16:31] VITALS: BP 161/79
--- NOTE | 2021-10-12 16:32 | NUR ---
Patient discharged with v/s stable. Written and verbal after care instructions ABOUT ARTHRITIS given and explained. Patient alert, oriented and verbalized understanding of instructions. Ambulatory with steady gait. All questions addressed prior to discharge. ID band removed. Patient advised to follow up with PMD. Rx of TRAMDOL HCL given. Patient educated on indication of medication including possible reaction and side effects. Opportunity to ask questions provided and answered.
== END 2021-10-12 16:32 | disposition home or self-care (01) ==
LOC: MED 14:33
DX: M17.0 Bilateral primary osteoarthritis of knee (principal); E11.9 Type 2 diabetes mellitus without complications; Z79.891 Long term (current) use of opiate analgesic; Z79.1 Long term (current) use of non-steroidal anti-inflammatories (NSAID); Z79.2 Long term (current) use of antibiotics; Z79.899 Other long term (current) drug therapy
CPT/HCPCS: 96372; 99283; J1885

== ENCOUNTER 2021-11-20 13:02 | Emergency (ER) | payer MEDICAID ==
[~2021-11-20] VITALS: Ht 147.3 cm; Wt 89.8 kg
[~2021-11-20 13:02] MED LIST changes: +TRAM50TA1 PO
[2021-11-20 13:15] VITALS: BP 125/76
[2021-11-20] MEDS ORDERED: PROM118S5 PO (14:15)
[2021-11-20] MEDS ORDERED: AMOX500T3 PO (14:15)
[2021-11-20] MEDS ORDERED: PRED20TA5 PO (14:15)
[2021-11-20] MEDS ORDERED: NAPR-54 PO (14:15)
[2021-11-20 14:46] VITALS: BP 125/76
--- NOTE | 2021-11-20 14:46 | NUR ---
Patient discharged with v/s stable. Written and verbal after care instructions given and explained. Patient verbalized understanding. Ambulatory with daughter to car. All questions addressed prior to discharge. Advised to follow up with PMD. rx: prednisone, amoxicillin, naproxen, promethazine (sent)
== END 2021-11-20 14:39 | disposition home or self-care (01) ==
LOC: MED 13:02
DX: U07.1 COVID-19 (principal); E11.9 Type 2 diabetes mellitus without complications
CPT/HCPCS: 71045; 93005; 99285; U0003